=== PATIENT | female | born 1975 | race Caucasian/White ===

== ENCOUNTER 2023-03-27 04:06 | Day surgery (SDC) | payer OTHER, SELFPAY ==
[2023-03-27] VITALS (23 sets, daily range): BP systolic 42–146; BP diastolic 31–83; BMI 19.7; BMI 26.5
--- NOTE | 2023-03-27 00:32 | ED.GENMED ---
History of Present Illness
General
Chief Complaint: Abdominal Pain
Source: patient
Time Seen by Provider: 03/27/23 00:15
Travel History
Have you had any contact with someone who has COVID-19?: No
Do you have any symptoms of coronavirus? Fever > 100 degrees, chills, cough, shortness of breath, sore throat, loss of taste or smell, muscle aches, or headache?: No
History of Present Illness
History of Present Illness:
This patient is a 47-year-old female with a known history of gallstones who says she occasionally has a 'flareup' of discomfort after eating certain foods. She was away in the [facility] for the past week, returned on Thursday. She states over the
last 2 weeks, particular with certain foods, she has noted increasing frequencies of 'flareups'. She describes this discomfort is located in the right upper quadrant sometimes radiating to the epigastric area sometimes radiating to the lower breast
area. This is not associated with vomiting, fever, chills, diarrhea, back pain, shoulder pain, neck pain, headache, dizziness. She denies leg swelling. Tonight, after dinner, her pain got significantly worse and persists. When asked about
shortness of breath, she notes that while she was coming here she noted she felt very slightly short of breath when she would try to take a deep breath.
Past History
Past History
ED Past Medical History: Other (ADHD, gallstones, asthma)
ED Past Surgical History: and Orthopedic
Social History
Tobacco: Non-smoker
Alcohol: Occasional
Drug: None
Personal:
Living: with family
Phy Exam
Physical Exam
Physical Exam:
GENERAL: Alert , in no apparent distress
EYE: pupils equal and reactive
NECK: Supple, no significant adenopathy.
ENT: o/p clr, mmm.
CARDIAC: Regular rate and rhythm .
LUNGS: Clear breath sounds bilaterally, no acute respiratory distress, no wheezes/rales/rhonchi
ABDOMEN: Soft, mild right upper quadrant tenderness, no r/g, no cvat
NEUROLOGICAL: Alert and oriented, no focal neuro deficits
SKIN: Warm and dry, skin intact.
MUSCULOSKELETAL: No edema, well perfused.
PSYCH: Normal and appropriate interaction.
Course
Orders/Labs/Results
Orders:
Orders
03/27/23 00:17
US Abdomen Complete/Upper Urgent
Comment:
Reason For Exam: HX OF GALLSTONES, NOW PAIN
03/27/23 00:25
Complete Blood Count/No Diff Urgent
Comprehensive Metabolic Panel Urgent
Lipase Urgent
03/27/23 00:32
ECG [Electrocardiogram (*1)] Stat
Reason for Study: Chest Pain
EKG- Treatment ONCE
03/27/23 00:47
D-Dimer Stat
03/27/23 02:19
Zosyn 3.375 grams IVPB NOW Piperacillin/Tazo 3.375 Gram [Zosyn] 3.375 gram in 50 ml IV NOW
Abnormal Lab Results
03/27/23
00:25
WBC 11.1 H 10^3/uL
(4.8-10.8)
RBC 3.64 L 10^6/uL
(4.20-5.40)
Hgb 11.8 L g/dL
(12.0-16.0)
Hct 33.4 L %
(37.0-47.0)
MCH 32.4 H pg
(27.0-31.0)
RDW 11.4 L %
(11.5-14.5)
Glucose 125 H mg/dl
(70-99)
03/27/23 00:25
03/27/23 00:25
Vital Signs
Initial and Last Documented VS:
Initial Vital Signs
Temp Pulse Resp BP Pulse Ox
99.4 F 83 16 146/79 98
03/27/23 00:03 03/27/23 00:03 03/27/23 00:03 03/27/23 00:03 03/27/23 00:03
Last Documented Vital Signs
Temp Pulse Resp BP Pulse Ox
99.4 F 67 18 137/71 97
03/27/23 00:03 03/27/23 01:00 03/27/23 01:00 03/27/23 01:00 03/27/23 01:00
*Critical Care Note
Total Time (30-74mins, 75-104mins- exclusive of procedures): Not Applicable
Update Note
Update Note:
Patient presents to the Emergency Department with ____abdominal pain
Number and Complexity of Problems Addressed at the Encounter
� Chronic conditions affecting care:
� Acute Exacerbation and/or Progression of Chronic Illness:
� Differential Diagnosis includes: But not limited to cholecystitis, cholelithiasis, or pancreatitis, PE, ACS, etc.
Amount and/or Complexity of Data to be Reviewed and Analyzed
� I performed an independent evaluation of and my interpretation is:
EKG: Read by me, normal sinus rhythm, normal rate, normal axis, no acute ischemia
CT:
Xrays:
Laboratory Studies:
Other: Vision report verbally: Ultrasound consistent with acute cholecystitis� Sludge, wall thickening, pericholecystic fluid, multiple stones seen including in the neck of the gallbladder
� Review of other/old records reveals:
� Clinical information was obtained by an independent historian:
� Prescriptions/Medications Considered but not given:
� Further testing considered but not performed:
Risk of Complications and/or Morbidity or Mortality of Patient Management
� Social determinants of health affecting care:
� Discussion with other providers (PCP, Hospitalists, Consultants, etc):
� Escalation of care including admission/observation vs risk of discharge considered: 2:21 AM reassessment, patient declines pain medication, still does have mild pain, no nausea or vomiting. Made aware of diagnosis and plan of
care which includes admission, IV antibiotics, surgical consult. Despite stone being noted in the neck of the gallbladder, lipase and LFTs unremarkable. Patient not septic. Case discussed with Dr. Serrano, aware of plan, agrees. At Dr. Elena
request, antibiotic specifically written for our Rocephin and Flagyl. Case discussed with admitting [employer], Rina Sheikh.
ED Attending Note
-
Portions of this chart may have been created with voice recognition software.� Occasional wrong word or��sound alike� substitutions may have occurred due to the inherent limitations of voice recognition software.
Discharge Plan
Departure
Patient Disposition: Admit
Date of Disposition: 03/27/23
Time of Disposition: 02:20
Presentation/result/management discussed w/ accepting MD/DO: ena
Condition: Fair
Discharge Problem:
Acute cholecystitis
Prescriptions:
No Action
vit no.140-avof-fmbot [ Vitamin] 1 EACH tablet
1 mg PO DAILY
Referrals:
Alvino Kumar MD [Family Provider] -
Interventions
Interventions:
*Risk Screen - Suicide Last Done: 03/27/23 00:03
*General Assessment Last Done: 03/27/23 00:03
*Neglect/Abuse Screening Last Done: 03/27/23 00:03
ED- Fall Risk Assessment Last Done: 03/27/23 00:03
*ED COVID-19 Vaccine History Last Done: 03/27/23 00:03
RC-Tlehxk-Cpzfbxzhdx Assessment Last Done: 03/27/23 00:30
[2023-03-27 00:39] LABS: Hematocrit 33.4 % (37.0-47.0); Hemoglobin 11.8 g/dL (12.0-16.0); Mean Corp Hgb Conc. 35.3 g/dL (33.0-37.0); Mean Corpuscular Hgb 32.4 pg (27.0-31.0); Mean Corpuscular Volume 91.8 fL (81.0-99.0); Mean Platelet Volume 10.3 fL (7.4-10.4); Platelet Count 313 10^3/uL (130-400); Red Blood Cell Count 3.64 10^6/uL (4.20-5.40); Red Cell Dist. Width 11.4 % (11.5-14.5); White Blood Cell Count 11.1 10^3/uL (4.8-10.8)
[2023-03-27 01:14] LABS: ALT (SGPT) 17 U/L (0-35); AST (SGOT) 21 U/L (14-36); Albumin 4.4 g/dl (3.5-5.0); Alkaline Phosphatase 71 U/L (38-126); Blood Urea Nitrogen 9 mg/dl (7-17); Calcium 9.1 mg/dl (8.4-10.2); Carbon Dioxide 27 mmol/L (22-30); Chloride 104 mmol/L (98-107); Glucose 125 mg/dl (70-99); Lipase 56 U/L (23-300); Potassium 4.1 mmol/L (3.5-5.1); Sodium 137 mmol/L (135-145); Total Bilirubin 0.7 mg/dl (0.2-1.3); Total Protein 7.1 g/dl (6.3-8.2); eGFR > 60.00
[2023-03-27 01:15] LABS: D-Dimer 0.44 ug/mlFEU (0.00-0.50)
[2023-03-27] MEDS: ROCEPHIN 1000 MG IV (02:31)
[2023-03-27] MEDS: FLAGYL 500 MG 100 IV (02:31)
--- NOTE | 2023-03-27 03:18 | HPS.HSE ---
Addendum entered and electronically signed by Dain Wood MD 03/27/23 10:45:
I saw and examined the patient.
The Director [employer]'s note was reviewed and I agree with the note.
Comment: Longstanding issue, managed for 10 years with diet, but last 2 weeks has been worse. Last night pain worsened prompting ED presentation. This am she still requires pain meds and is drawing tender to RUQ on exam. LFTs WNL. US with stones,
GBWT and PCF present. Plan: OCTOR for lap bhupinder
Original Note:
Family Physician
-
Family Physician: Alvino Kumar
Chief Complaint
-
abdominal pain
History of Present Illness
This is a very pleasant 47 year old female who comes to the ED with RUQ abdominal discomfort. She has history of gallstones and notes increased frequency and duration of her symptoms depending on certain foods she eats. After a trip to [place] (of
which she was ill with similar symptoms for a day or so unfortunately) her discomfort has been increasing. No associated symptoms of N/V/D but she does find at times it is difficult to take a deep breath. Otherwise she denies CANO, LARIOS, dysuria or
bilateral LE discomfort. PMH includes asthma, anxiety, ADHD, gallstones, DDD of cervical spine. She appears comfortable and has only taken a tylenol prior to arrival here.
Medical History
Past Medical History
Past Medical History: Reports Asthma and Psychiatric (anxiety)
Additional Past Medical History:
ADHD, DDD cervical spine
Past Surgical History: Reports and Orthopedic
Social History
Tobacco: Non-smoker
Alcohol: Occasional
Drug: None
Personal:
Living: With Family
Employment: Employed
Family History
Family History: Not pertinent
Allergies / Home Medications
Allergies reflects when Allergies were last updated in [facility].
Home Medications with original date entered in [facility]
Allergy/Medication List:
Medication� � SIG (Take, Route, Frequency, Duration)� � Notes� � Start Date� � End Date� � Status� �
LORazepam 0.5 MG� � 1 tablet� as needed Orally every 8 hours for 30 days� � Feb,� � Active� �
ProAir HFA 108 (90 Base) MCG/ACT� � inhale 2 puff by inhalation route� every 4 - 6 hours as needed Inhalation for 30 days� � prn� � Feb,� � Active� �
Excedrin Migraine 250-250-65 MG� � 2 tablets Orally Once a day for 30 day(s)� � Feb,� � Active� �
guaiFENesin ER 600 MG� � 1 tablet as needed Orally every 12 hrs� � Feb,� � Active� �
Amphetamine-Dextroamphetamine 20 MG� � 1 tablet Orally Twice a day for 30 days� � Feb,� � Active� �
Fluticasone Propionate 50 MCG/ACT� � 1 SPRAY INTO INTO EACH NOSTRIL EVERY DAY for 60� � prn� � Feb,� � Active� �
Escitalopram Oxalate 10 MG� � TAKE 1.5 TABLETS ORALLY ONCE A DAY for 30 days� � Feb,� � Active� �
Naproxen 250 MG� � 1 tablet with food or milk Orally Twice a day for 30 day(s)� � otc prn� � Feb,� � Active� �
Cetirizine HCl 10 MG� � 1 tablet Orally Once a day� � Feb,� � Active� �
Allergies
Allergy/AdvReac Type Severity Reaction Status Date / Time
No Known Allergies Allergy Verified 03/27/23 00:03
Home Medications
vits no.130-ferrous fum 27 mg iron-folic acid 800 mcg tablet ( Vitamin) 1 mg PO DAILY 03/15/13
#SHE IS UNSURE OF HER DOSAGES SO WILL HAVE BRING THEM IN. SHE HASN'T TAKEN HER HOME MEDICATIONS IN ABOUT ONE WEEK. List above is not confirmed but us what is on file for her.
Review of Systems
-
A 12 point ROS was completed and negative except as noted: Yes
Constitutional: Reports Fatigue
EENT: Reports No Symptoms
Respiratory: Reports No Symptoms
Cardiac: Reports No Symptoms
Abdomen/GI: Reports Abdominal Pain
: Reports No Symptoms
Musculoskeletal: Reports No Symptoms
Skin: Reports No Symptoms
Neurological: Reports No Symptoms
Endocrine: Reports No Symptoms
Hematologic/Lymphatic: Reports No Symptoms
Psych: Reports No Symptoms
Physical Exam
Vital Signs
Vital Signs
Temp Pulse Resp BP Pulse Ox
99.4 F 57 18 137/61 98
03/27/23 00:03 03/27/23 03:02 03/27/23 01:00 03/27/23 02:00 03/27/23 03:00
Physical Exam
General: Well Developed, Well Nourished, No Apparent Distress and Conversant
HEENT: NormoCephalic, Moist mucous membranes and Atraumatic
Respiratory: Clear and Non Labored Respirations
Cardiac: S1/S2 and Regular Rhythm
Breast: Deferred by me
GI: Soft and Tender
Rectal: Deferred by Provider
Genito-urinary: Clear Urine
Musculoskeletal: No Clubbing, No Cyanosis and No Edema
Skin: Warm and Dry
Neuro: Awake, Alert, AO x 3 and No Motor Deficits
Hematologic/Lymphatic: No Lymphadenopathy
Psych: Calm
Laboratory Results
-
03/27/23 00:25
03/27/23 00:25
Laboratory Results
Total Bilirubin 0.7 mg/dl (0.2-1.3) 03/27/23 00:25
AST 21 U/L (14-36) 03/27/23 00:25
ALT 17 U/L (0-35) 03/27/23 00:25
Alkaline Phosphatase 71 U/L (38-126) 03/27/23 00:25
Lipase 56 U/L (23-300) 03/27/23 00:25
Data Reviewed
-
Ultrasound: Report Reviewed by me
Lab Data: Labs Reviewed by me
Old Records: Reviewed
Impression/Plan
-
IMPRESSION: Acute Cholecystitis
PLAN: This is a very pleasant 47 year old female who comes to the ED with RUQ abdominal discomfort. She has history of gallstones and notes increased frequency and duration of her symptoms depending on certain foods she eats. After a trip to [place]
(of which she was ill with similar symptoms for a day or so unfortunately) her discomfort has been increasing. No associated symptoms of N/V/D but she does find at times it is difficult to take a deep breath. Otherwise she denies CANO, LARIOS, dysuria or
bilateral LE discomfort. PMH includes asthma, anxiety, ADHD, gallstones, DDD of cervical spine. She appears comfortable and has only taken a tylenol prior to arrival here.
* Acute cholecystitis: NPO, NS IVF, Metronidazole IV, Morphine IV prn pain, Zofran IV prn n/v.
*Asthma: PRN ProAir inhaler.
*Anxiety: PRN Ativan. Escitalopram.
*DVT prophylaxis: SCDs, Broderick saavedra, Lovenox SQ post op, oob ad rosana.
*Disposition: FC. General surgery service. Home medication list is not confirmed since she is unaware of doses..List of meds on file for her is added. will verify.
[2023-03-27] MEDS: MORPHINE SULFATE 2 MG IV (04:37)
[2023-03-27] MEDS: NSS 1000 IV (04:38)
[2023-03-27] MEDS: MORPHINE SULFATE 4 MG IV (07:38)
[2023-03-27] MEDS: ZOFRAN 4 MG IV (07:38)
--- NOTE | 2023-03-27 10:02 | CM ---
CM reviewed medical records. OBS letter given. Patient independently with and daughter. No history of VN, SNF or DME. Patient is active with PCP. Patient uses [facility] pharmacy,
PLAN: Home no needs.
[2023-03-27] MEDS: DILAUDID 1 MG IV (10:24)
--- NOTE | 2023-03-27 13:37 | OR.RPT ---
Operative Report
Operative Report
Primary Surgeon: Israel
Assisting: Stacia
Pre-op Diagnosis: Acute calculous cholecystitis
Post-op Diagnosis: Same
Procedure Performed: Robot assisted laparoscopic cholecystectomy
Anesthesia Type: GETA
Specimen / Cultures: Gallbladder
Estimated Blood Loss: 5cc
Complications: None
Operative Findings: Severely distended, elongated, enlarged gallbladder with filmy omental adhesions, wall thickening, and pericholecystic edema
Date of Surgery:� 03/27/23
Indications: This 47F developed acute calculous cholecystitis.� Liver labs were within normal limits. No ductal dilation on imaging. Laparoscopic cholecystectomy was elected.
Description of procedure: The patient was placed on the operating table in the supine position. General anesthesia was induced. A time-out was completed verifying correct patient, procedure, site, positioning, and special equipment prior to
beginning this procedure. An orogastric tube was placed. The abdomen was prepped and draped in the usual sterile fashion. The drain was prepped into the field. The drain was prepped into the field. A stab incision was made in left upper quadrant and
the Veress needle was inserted. Proper position was confirmed by aspiration and saline meniscus test. The abdomen was insufflated with carbon dioxide to a pressure of 12mmHg. The patient tolerated insufflation well.
A 8mm trocar was then inserted above the umbilicus. The laparoscope was inserted and the abdomen inspected. No injuries from initial trocar placement or Veress needle insertion were noted. Additional 8mm trocars were then inserted in the following
locations: two in the right lower quadrant and to the left of the umbilicus and just above. The abdomen was inspected and no abnormalities were found. The table was placed in the reverse Trendelenburg position with the right side up. The gallbladder
was severely distended, elongated, and the dome was hanging quite low over the vicera. The dome of the gallbladder was grasped with an atraumatic grasper and retracted over the dome of the liver. Filmy omental adhesions were swept down bluntly. The
infundibulum was then grasped with an atraumatic grasper and retracted toward the right lower quadrant. This maneuver exposed Calot�s triangle. The peritoneum overlying the gallbladder infundibulum was then incised. The critical view was developed
bluntly such that only two structures were going into the gallbladder and a clear view of the liver was noted between them. The cystic artery was controlled with bipolar and divided. The cystic duct was controlled with locking clips and divided. The
gallbladder was dissected off the cystic plate, the posterior plane was edematous.
Hemostasis was assured and the gallbladder was removed using an endoscopic retrieval bag placed through the umbilical port. The incision was enlarged slightly to accommodate the very large gallbladder. The gallbladder was passed off the table as a
specimen. The gallbladder fossa was irrigated with sterile saline and was again inspected and hemostasis was assured. There was no evidence of bleeding from the gallbladder fossa or cystic artery or leakage of the bile from the cystic duct stump.
The umbilical trocar site was closed at the fascial level with 2-0 PDS in open fashion. Secondary trocars were removed under direct vision and noted to be hemostatic. The abdomen was allowed to collapse. The skin was closed with subcuticular sutures
of 4-0 monocryl and topical skin adhesive. The orogastric tube was removed.
The patient tolerated the procedure well and was taken to the postanesthesia care unit in stable condition.
[2023-03-27] MEDS: DILAUDID 0.25 MG IV (14:44)
== END 2023-03-27 17:55 | disposition home or self-care (01) ==
LOC: SDS 04:06
PROVIDERS: ATTENDING PHYSICIAN Surgery; EMERGENCY PHYSICIAN Emergency Medicine; FAMILY PHYSICIAN Family Medicine
DX: K80.00 Calculus of gallbladder with acute cholecystitis without obstruction (principal); K35.80 Unspecified acute appendicitis; K66.0 Peritoneal adhesions (postprocedural) (postinfection)
CPT/HCPCS: 47562; 88304; 76700; 80053; 83690; 85027; 85379; 93005; 94640; 96365; 96375; 99285; G0378

== ENCOUNTER → 2023-11-09 13:06 | Outpatient (REF) | payer OTHER, SELFPAY | LOC: WDC 13:06 | PROVIDERS: ATTENDING PHYSICIAN Internal Medicine Hematology & Oncology | DX: R92.2 Inconclusive mammogram (principal) | CPT/HCPCS: 76641 ==

== ENCOUNTER → 2024-01-20 12:50 | Outpatient (REF) | payer OTHER, SELFPAY | LOC: WDC 12:50 | PROVIDERS: ATTENDING PHYSICIAN Obstetrics & Gynecology; FAMILY PHYSICIAN Family Medicine | DX: Z12.31 Encounter for screening mammogram for malignant neoplasm of breast (principal) | CPT/HCPCS: 77063; 77067 ==

== ENCOUNTER → 2024-06-17 10:04 | Outpatient (REF) | payer OTHER, SELFPAY | LOC: WDC 10:04 | PROVIDERS: ATTENDING PHYSICIAN Obstetrics & Gynecology; FAMILY PHYSICIAN Family Medicine | DX: R92.2 Inconclusive mammogram (principal) | CPT/HCPCS: 76641 ==

== ENCOUNTER 2024-11-02 07:44 | Outpatient (RCR) | payer OTHER, SELFPAY | END 2024-11-02 23:59 | disposition home or self-care (01) | LOC: RPT 07:44 | PROVIDERS: ATTENDING PHYSICIAN Family Medicine; FAMILY PHYSICIAN Family Medicine | DX: M54.2 Cervicalgia (principal); M51.362 Other intervertebral disc degeneration, lumbar region with discogenic back pain and lower extremity pain; Z73.6 Limitation of activities due to disability; G89.29 Other chronic pain | CPT/HCPCS: 97110; 97162 ==

== ENCOUNTER 2024-12-07 08:04 | Outpatient (RCR) | payer OTHER, SELFPAY | END 2024-12-07 23:59 | disposition home or self-care (01) | LOC: RPT 08:04 | PROVIDERS: ATTENDING PHYSICIAN Family Medicine; FAMILY PHYSICIAN Family Medicine | DX: M54.2 Cervicalgia (principal); M51.362 Other intervertebral disc degeneration, lumbar region with discogenic back pain and lower extremity pain; Z73.6 Limitation of activities due to disability; G89.29 Other chronic pain | CPT/HCPCS: 97110 ==

== ENCOUNTER 2025-01-19 06:44 | Outpatient (RCR) | payer OTHER, SELFPAY | END 2025-01-23 12:08 | disposition home or self-care (01) | LOC: RPT 06:44 | PROVIDERS: ATTENDING PHYSICIAN Family Medicine; FAMILY PHYSICIAN Family Medicine | DX: M54.2 Cervicalgia (principal); M51.362 Other intervertebral disc degeneration, lumbar region with discogenic back pain and lower extremity pain; Z73.6 Limitation of activities due to disability; G89.29 Other chronic pain | CPT/HCPCS: 97110 ==

== ENCOUNTER → 2025-01-20 12:45 | Outpatient (REF) | payer OTHER, SELFPAY | LOC: WDC 12:45 | PROVIDERS: ATTENDING PHYSICIAN Obstetrics & Gynecology; FAMILY PHYSICIAN Family Medicine | DX: Z12.31 Encounter for screening mammogram for malignant neoplasm of breast (principal) | CPT/HCPCS: 77063; 77067 ==